=== PATIENT | male | born 1965 | race Caucasian/White ===

== ENCOUNTER 2018-08-08 22:28 | Emergency (ER) | payer SELFPAY ==
[~2018-08-08] VITALS: Ht 172.7 cm; Wt 77.3 kg
[2018-08-08] MEDS ORDERED: ACET-784 PO (23:06)
[2018-08-08] MEDS ORDERED: GABA-529 PO (23:06)
[2018-08-08] MEDS ORDERED: INSREG SQ (23:06)
[2018-08-08] MEDS ORDERED: AMLO-511 PO (23:06)
[2018-08-08] MEDS ORDERED: ASPI81 PO (23:06)
[2018-08-08] MEDS ORDERED: CEFA1VIA11 IVP (23:06)
[2018-08-08] MEDS ORDERED: MORP15T PO ×2 (23:06)
[2018-08-08] MEDS ORDERED: ATOR40TA28 PO (23:06)
[2018-08-08] MEDS ORDERED: INSLAN SQ (23:06)
[2018-08-08] MEDS ORDERED: MORP30CA17 PO ×2 (23:06)
[2018-08-08] MEDS ORDERED: ISOS10TA16 PO (23:06)
[2018-08-08] MEDS ORDERED: NITR.4 SL (23:06)
[2018-08-08] MEDS ORDERED: SODIUM CHLORIDE 0.9% 1,000 ML IV ONE (23:15)
[2018-08-08] MEDS ORDERED: ACETAMINOPHEN 325 MG TABLET PO ONE (23:15)
[2018-08-08] MEDS ORDERED: ASPIRIN 325 MG TABLET PO ONE (23:15)
[2018-08-08 23:34] LABS: BASOPHILS % (AUTO) 0.2 % (0.0-2.0); EOSINOPHILS % (AUTO) 2.5 % (1.0-6.0); HEMATOCRIT 27.6 % (41-53); HEMOGLOBIN 9.6 g/dL (13.5-17.5); LYMPHOCYTES # (AUTO) 0.3 K/uL (1.0-4.8); LYMPHOCYTES % (AUTO) 5.7 % (22.0-44.0); MEAN CORPUSCULAR HEMOGLOBIN 30.1 pg (26.0-34.0); MEAN CORPUSCULAR VOLUME 86 fL (80-100); MONOCYTES # (AUTO) 0.3 K/uL (0.1-1.0); MONOCYTES % (AUTO) 5.8 % (2.0-9.0); NEUTROPHILS # (AUTO) 4.8 K/uL (1.8-7.7); NEUTROPHILS % (AUTO) 85.8 % (40.0-70.0); RED CELL DISTRIBUTION WIDTH 13.7 % (11.5-14.5)
[2018-08-08 23:42] LABS: INR 1.3 (0.9-1.1); PROTHROMBIN TIME 13.4 SEC (9.4-11.6)
[2018-08-08] MEDS ORDERED: MORPHINE SULFATE 2 MG/ML SYRINGE IVP ONE (23:45)
[2018-08-08 23:46] LABS: ANION GAP 12 mmol/L (8-16); CALCIUM, TOTAL 7.6 mg/dL (8.8-10.5); CARBON DIOXIDE 22 mmol/L (22-29); CHLORIDE 101 mmol/L (98-107); CREATININE 1.15 mg/dL (0.60-1.30); GLOMERULAR FILTR. RATE CALC > 60 mL/min (>60); GLUCOSE,RANDOM 103 mg/dL (70-110); PLATELET COUNT (AUTO) 72 K/uL (150-450); PLATELET MORPHOLOGY COMMENT LARGE PLTS PRESENT; POTASSIUM 3.4 mmol/L (3.5-5.1); SODIUM SERUM 135 mmol/L (136-145); UREA NITROGEN, BLOOD 15 mg/dL (7-18)
[2018-08-08 23:47] LABS: LACTIC ACID 0.8 mmol/L (0.4-2.0)
[2018-08-09 00:01] LABS: B-TYPE NATRIURETIC PEPTIDE 306 pg/mL (0-100)
[2018-08-09 00:08] LABS: ALANINE AMINOTRANSFERASE 9 U/L (12-78); ALBUMIN 2.2 g/dL (3.4-5.0); ALKALINE PHOSPHATASE 61 U/L (46-116); ASPARTATE AMINOTRANSFERASE 30 U/L (15-37); BILIRUBIN,TOTAL 1.5 mg/dL (0.1-1.0); CREATINE KINASE, TOTAL ONLY 204 U/L (39-308); TOTAL PROTEIN, SERUM 5.8 g/dL (6.4-8.2)
[2018-08-09] MEDS ORDERED: FUROSEMIDE 40 MG/4 ML VIAL IVP ONE (01:15)
[2018-08-09] MEDS ORDERED: SODIUM CHLORIDE 0.9% 1,000 ML IV ONE (01:15)
[2018-08-09 01:55] LABS: APPEARANCE,URINE CLOUDY (CLEAR); BILIRUBIN,URINE NEGATIVE (NEGATIVE); GLUCOSE, URINE (UA) NEGATIVE (NEGATIVE); KETONES,URINE TRACE mg/dL (NEGATIVE); LEUKOCYTE ESTERASE ,URINE NEGATIVE (NEGATIVE); NITRATE,URINE NEGATIVE (NEGATIVE); OCCULT BLOOD,URINE LARGE (NEGATIVE); PH,URINE 5.5 (5.0-8.0); PROTEIN,URINE NEGATIVE (NEGATIVE)
[2018-08-09 02:22] LABS: D-DIMER 2.36 mg/L FEU (0.00-0.50)
[2018-08-09 03:15] LABS: BACTERIA,URINE None Seen /HPF (None Seen); RBC,URINE 26-50 /HPF (0-2); WBC,URINE 0-2 /HPF (0-5)
[2018-08-09 03:16] LABS: SQUAMOUS EPITHELIAL CELL,UR Rare /LPF (None Seen)
[2018-08-09] MEDS ORDERED: SODIUM CHLORIDE 0.9% 100 ML ONE (03:48)
[2018-08-09] MEDS ORDERED: IOVERSOL 350 MG/ML 100 ML VIAL ONE (03:48)
[2018-08-09 05:00] VITALS: BP 128/74
== END 2018-08-09 05:00 | disposition home or self-care (01) ==
LOC: EMS 22:30
DX: R07.89 Other chest pain (principal); R31.9 Hematuria, unspecified; I25.10 Atherosclerotic heart disease of native coronary artery without angina pectoris; I11.0 Hypertensive heart disease with heart failure; I50.9 Heart failure, unspecified; E11.9 Type 2 diabetes mellitus without complications; Z88.5 Allergy status to narcotic agent; Z79.4 Long term (current) use of insulin; Z79.82 Long term (current) use of aspirin; Z79.899 Other long term (current) drug therapy; Z87.891 Personal history of nicotine dependence
CPT/HCPCS: 36415; 71045; 71275; 80053; 81001; 82550; 83605; 83880; 84484; 85025; 85379; 85610; 85730; 87040; 93005; 96374; 96375; 99285; J1940; J2270; J7030; J7050; Q9967

== ENCOUNTER 2025-03-14 02:15 | Inpatient (IN) | payer OTHER ==
[~2025-03-14] VITALS: Ht 170.2 cm; Wt 76.4 kg
[~2025-03-14 02:15] MED LIST: FAMO20 PO; FURO20TA5 PO; INSLAN SQ; INSU100V SQ; LACT10SO10 PO; NITR0.4T52 SL; RIFAX550 PO; SPIR-37 PO
[2025-03-14] MEDS: LIDOCAINE 2% 6 ML JELLY TP ONE (04:06)
[2025-03-14 04:37] LABS: RED BLOOD CELL COUNT(AUTO) 4.53 MIL/uL (4.50-5.90); RED CELL DISTRIBUTION WIDTH 17.4 % (11.5-14.5); WHITE BLOOD COUNT (AUTO) 3.2 K/uL (4.5-11.0)
[2025-03-14 04:40] LABS: CALCIUM, TOTAL 8.4 mg/dL (8.8-10.5); CREATININE 0.77 mg/dL (0.60-1.30); GLOMERULAR FILTR. RATE CALC > 60 mL/min (>60); GLUCOSE,RANDOM 167 mg/dL (70-110); SODIUM SERUM 139 mmol/L (136-145); UREA NITROGEN, BLOOD 11 mg/dL (7-18)
[2025-03-14 04:45] LABS: ASPARTATE AMINOTRANSFERASE 30.0 U/L (15-37); TOTAL PROTEIN, SERUM 6.7 g/dL (6.4-8.2)
[2025-03-14 04:46] LABS: PLATELET COUNT (AUTO) 62 K/uL (150-450)
[2025-03-14 04:48] LABS: APPEARANCE,URINE CLEAR (CLEAR); GLUCOSE, URINE (UA) NEGATIVE (NEGATIVE); LEUKOCYTE ESTERASE ,URINE NEGATIVE (NEGATIVE); NITRATE,URINE NEGATIVE (NEGATIVE); OCCULT BLOOD,URINE MODERATE (NEGATIVE); SPECIFIC GRAVITIY, URINE 1.015 (1.003-1.030)
[2025-03-14 04:50] LABS: SQUAMOUS EPITHELIAL CELL,UR Few /LPF (None Seen)
[2025-03-14 06:22] LABS: TROPONIN I-HIGH SENSITIVITY 15 ng/L (<76)
[2025-03-14 08:36] LABS: GLUCOMETER DEV NAME(LOC) ERT.7; GLUCOSE,POINT OF CARE 158 MG/DL (70-110)
[2025-03-14 10:41] VITALS: BP 162/86; PULSE 61; RESP 18; TEMP 97.5; O2SAT 99
[2025-03-14] MEDS ORDERED: DEXTROSE 50%-WATER 25 GM/50 ML SYRINGE IVP PRN (13:15)
[2025-03-14] MEDS: POTASSIUM CHLORIDE 20 MEQ ER TABLET PO ONE (13:57)
[2025-03-14] MEDS: KETOROLAC TROMETHAMINE 15 MG/ML VIAL IVP PRN (13:58)
[2025-03-14 15:55] VITALS: BP 138/81; PULSE 72; RESP 18; TEMP 98.1; O2SAT 98
[2025-03-14] MEDS ORDERED: ONDANSETRON HCL 4 MG/2 ML VIAL IVP PRN (16:45)
[2025-03-14] MEDS ORDERED: BISACODYL 10 MG RECTAL RECTAL SUPPOSITORY PR PRN (16:45)
[2025-03-14] MEDS ORDERED: ALBUTEROL SULFATE 2.5 MG/0.5 ML NEB SOLUTION NEB PRN (16:45)
[2025-03-14] MEDS ORDERED: IPRATROPIUM BROMIDE 0.5 MG/2.5 ML NEB SOLUTION NEB PRN (16:45)
[2025-03-14] MEDS ORDERED: ATOR20TA65 PO (16:45)
[2025-03-14] MEDS ORDERED: MAGNESIUM HYDROXIDE SUSPENSION 30 ML UDCUP PO PRN (16:45)
[2025-03-14] MEDS: INSULIN LISPRO 100 UNITS/ML SQ PRN (17:30)
[2025-03-14 17:40] LABS: GLUCOMETER DEV NAME(LOC) 6S.1D; GLUCOSE,POINT OF CARE 178 MG/DL (70-110)
[2025-03-14 18:26] LABS: GLUCOMETER DEV NAME(LOC) 6S.2; GLUCOSE,POINT OF CARE 241 MG/DL (70-110)
[2025-03-14] MEDS: ACETAMINOPHEN 325 MG TABLET PO PRN (20:20)
[2025-03-14 20:21] VITALS: BP 147/74; PULSE 63; RESP 19; TEMP 98.1; O2SAT 99
[2025-03-14] MEDS: DOCUSATE SODIUM 100 MG CAPSULE PO SCH (21:12)
[2025-03-14] MEDS: HEPARIN SODIUM,PORCINE 5,000 UNITS/ML VIAL SQ SCH (23:33)
[2025-03-15 04:51] VITALS: BP 161/85; PULSE 62; RESP 19; TEMP 98; O2SAT 95
[2025-03-15 05:26] LABS: GLUCOMETER DEV NAME(LOC) 6S.1D; GLUCOSE,POINT OF CARE 149 MG/DL (70-110)
[2025-03-15 06:30] VITALS: BP 147/83
[2025-03-15 06:41] LABS: GLUCOMETER DEV NAME(LOC) 6N.2C; GLUCOSE,POINT OF CARE 151 MG/DL (70-110)
[2025-03-15] MEDS: PANTOPRAZOLE SODIUM 40 MG/VIAL IVP SCH (08:40)
[2025-03-15 09:06] VITALS: BP 135/83; PULSE 68; RESP 18; TEMP 97.9; O2SAT 96
[2025-03-15] MEDS: TAMSULOSIN HCL 0.4 MG CAPSULE PO ONE (10:25)
[2025-03-15 14:10] LABS: GLUCOMETER DEV NAME(LOC) 6S.1D; GLUCOSE,POINT OF CARE 178 MG/DL (70-110)
[2025-03-15 19:20] VITALS: BP 123/62; PULSE 72; RESP 18; TEMP 97.9; O2SAT 97
[2025-03-15] MEDS: TAMSULOSIN HCL 0.4 MG CAPSULE PO SCH (20:13)
[2025-03-15 20:36] LABS: GLUCOMETER DEV NAME(LOC) 6N.2C; GLUCOSE,POINT OF CARE 157 MG/DL (70-110)
[2025-03-15] MEDS: ZOLPIDEM TARTRATE 5 MG TABLET PO PRN (22:50)
[2025-03-16 02:46] LABS: GLUCOMETER DEV NAME(LOC) 6S.2; GLUCOSE,POINT OF CARE 201 MG/DL (70-110)
[2025-03-16 08:00] VITALS: BP 141/80; PULSE 61; RESP 19; TEMP 97.7; O2SAT 97
[2025-03-16 15:56] LABS: GLUCOMETER DEV NAME(LOC) 6N.2C; GLUCOSE,POINT OF CARE 203 MG/DL (70-110)
[2025-03-16 16:00] LABS: GLUCOMETER DEV NAME(LOC) 6S.2; GLUCOSE,POINT OF CARE 159 MG/DL (70-110)
[2025-03-16 20:26] LABS: GLUCOMETER DEV NAME(LOC) 6S.2; GLUCOSE,POINT OF CARE 151 MG/DL (70-110)
[2025-03-16 20:26] LABS: GLUCOMETER DEV NAME(LOC) 6S.2; GLUCOSE,POINT OF CARE 190 MG/DL (70-110)
[2025-03-16 20:39] VITALS: BP 134/65; PULSE 66; RESP 18; TEMP 97.7; O2SAT 99
[2025-03-17 05:24] VITALS: BP 146/76; PULSE 59; RESP 20; TEMP 97.9; O2SAT 96
[2025-03-17 05:50] LABS: GLUCOMETER DEV NAME(LOC) 6N.2C; GLUCOSE,POINT OF CARE 169 MG/DL (70-110)
[2025-03-17] MEDS ORDERED: TAMS0.4C94 PO (07:52)
[2025-03-17] MEDS ORDERED: METF-1211 PO (07:54)
[2025-03-17 08:16] VITALS: BP 157/67; PULSE 62; RESP 20; TEMP 97.7; O2SAT 98
[2025-03-17 14:51] LABS: GLUCOMETER DEV NAME(LOC) 6N.2C; GLUCOSE,POINT OF CARE 162 MG/DL (70-110)
== END 2025-03-17 15:11 | DRG 726 ==
LOC: EMS 02:16 → EDH 07:44 → 6S 09:57
PROVIDERS: ADMIT Hospitalist; ATTEND Hospitalist
DX: N40.1 Benign prostatic hyperplasia with lower urinary tract symptoms (principal); R33.8 Other retention of urine; E78.5 Hyperlipidemia, unspecified; E11.9 Type 2 diabetes mellitus without complications; D69.6 Thrombocytopenia, unspecified; E87.6 Hypokalemia; I11.0 Hypertensive heart disease with heart failure; I25.10 Atherosclerotic heart disease of native coronary artery without angina pectoris; K74.60 Unspecified cirrhosis of liver; I50.9 Heart failure, unspecified; Z86.73 Personal history of transient ischemic attack (TIA), and cerebral infarction without residual deficits; Z87.891 Personal history of nicotine dependence; Z88.5 Allergy status to narcotic agent; Z79.899 Other long term (current) drug therapy
CPT/HCPCS: 51702; 71045; 74018; 74176; 80048; 80076; 81001; 82962; 83880; 84132; 84484; 85025; 93005; 99285; J1885; J2470; 36415-L1; 36415-TC

== ENCOUNTER 2025-03-22 09:33 | Inpatient (IN) | payer OTHER ==
[~2025-03-22] VITALS: Ht 170.2 cm; Wt 78.6 kg
[~2025-03-22 09:33] MED LIST changes: -FAMO20 PO; -FURO20TA5 PO; -INSLAN SQ; -LACT10SO10 PO; +METF-1211 PO; -NITR0.4T52 SL; -RIFAX550 PO; -SPIR-37 PO; +TAMS0.4C94 PO
[2025-03-22 10:08] LABS: PLATELET COUNT (AUTO) 65 K/uL (150-450); RED BLOOD CELL COUNT(AUTO) 4.38 MIL/uL (4.50-5.90); RED CELL DISTRIBUTION WIDTH 17.1 % (11.5-14.5); WHITE BLOOD COUNT (AUTO) 2.8 K/uL (4.5-11.0)
[2025-03-22 10:15] LABS: CALCIUM, TOTAL 7.8 mg/dL (8.8-10.5); CREATININE 0.81 mg/dL (0.60-1.30); GLOMERULAR FILTR. RATE CALC > 60 mL/min (>60); GLUCOSE,RANDOM 183 mg/dL (70-110); SODIUM SERUM 140 mmol/L (136-145); UREA NITROGEN, BLOOD 13 mg/dL (7-18)
[2025-03-22 10:29] LABS: RBC MORPHOLOGY COMMENT ABNORMAL RBC MORPH
[2025-03-22 11:10] LABS: APPEARANCE,URINE CLEAR (CLEAR); GLUCOSE, URINE (UA) 300-500 mg/dL (NEGATIVE); LEUKOCYTE ESTERASE ,URINE NEGATIVE (NEGATIVE); NITRATE,URINE NEGATIVE (NEGATIVE); OCCULT BLOOD,URINE NEGATIVE (NEGATIVE); SPECIFIC GRAVITIY, URINE 1.019 (1.003-1.030)
[2025-03-22] MEDS ORDERED: DEXTROSE 50%-WATER 25 GM/50 ML SYRINGE IVP PRN (11:30)
[2025-03-22] MEDS ORDERED: FentaNYL CITRATE PF 100 MCG/2 ML VIAL ONE (11:38)
[2025-03-22] MEDS ORDERED: POTASSIUM CHL 10 MEQ/WATER 50 ML IV PRN (11:45)
[2025-03-22] MEDS ORDERED: POTASSIUM CHLORIDE 20 MEQ ER TABLET PO PRN (11:45)
[2025-03-22] MEDS: POTASSIUM CHLORIDE 20 MEQ ER TABLET PO ONE (12:09)
[2025-03-22 12:35] VITALS: BP 163/83; PULSE 70; RESP 18; TEMP 97.5; O2SAT 100
[2025-03-22] MEDS: ACETAMINOPHEN 325 MG TABLET PO PRN (14:26)
[2025-03-22] MEDS ORDERED: HEPARIN SODIUM,PORCINE 5,000 UNITS/ML VIAL SQ SCH (16:00)
[2025-03-22 18:50] LABS: GLUCOMETER DEV NAME(LOC) 6S.2; GLUCOSE,POINT OF CARE 131 MG/DL (70-110)
[2025-03-22 20:05] VITALS: BP 130/80; PULSE 65; RESP 18; TEMP 98.1; O2SAT 98
[2025-03-22] MEDS: INSULIN LISPRO 100 UNITS/ML SQ PRN (20:35)
[2025-03-22] MEDS: DOCUSATE SODIUM 100 MG CAPSULE PO SCH (20:35)
[2025-03-22] MEDS: TAMSULOSIN HCL 0.4 MG CAPSULE PO SCH (20:35)
[2025-03-22 21:21] LABS: GLUCOMETER DEV NAME(LOC) 6N.2C; GLUCOSE,POINT OF CARE 144 MG/DL (70-110)
[2025-03-23 05:15] VITALS: BP 155/76; PULSE 63; RESP 18; TEMP 98.4; O2SAT 99
[2025-03-23] MEDS: ETHYL ALCOHOL 62% ANTISEPTIC NASAL SANITIZER 0.6 ML AMPUL NASAL ONE (06:28)
[2025-03-23] MEDS: CHLORHEXIDINE GLUCONATE 2% TOWELETTE [2'S/6'S] TP ONE (06:28)
[2025-03-23] MEDS ORDERED: RINGERS SOLUTION,LACTATED 1,000 ML IV ONE (06:44)
[2025-03-23] MEDS: RINGERS SOLUTION,LACTATED 1,000 ML IV ONE (06:52)
[2025-03-23 07:22] LABS: CALCIUM, TOTAL 7.8 mg/dL (8.8-10.5); CREATININE 0.85 mg/dL (0.60-1.30); GLOMERULAR FILTR. RATE CALC > 60 mL/min (>60); GLUCOSE,RANDOM 129 mg/dL (70-110); SODIUM SERUM 142 mmol/L (136-145); UREA NITROGEN, BLOOD 15 mg/dL (7-18)
[2025-03-23 07:46] VITALS: BP 121/71; PULSE 78; RESP 18; TEMP 98.4; O2SAT 100
[2025-03-23] MEDS ORDERED: PROPOFOL 1000 MG/ISO-OSM 100 ML ONE (10:20)
[2025-03-23] MEDS ORDERED: GLYCOPYRROLATE 0.2 MG/ML VIAL ONE (11:04)
[2025-03-23] MEDS ORDERED: ROCURONIUM BROMIDE 10 MG/ML 5 ML VIAL ONE (11:04)
[2025-03-23] MEDS ORDERED: SUGAMMADEX SODIUM 200 MG/2 ML VIAL IVP ONE (11:04)
[2025-03-23] MEDS ORDERED: PROPOFOL 1% 20 ML VIAL IVP ONE (11:04)
[2025-03-23] MEDS ORDERED: ONDANSETRON HCL 4 MG/2 ML VIAL ONE (11:04)
[2025-03-23] MEDS ORDERED: METOCLOPRAMIDE HCL 5 MG/ML 2 ML VIAL ONE (11:04)
[2025-03-23] MEDS ORDERED: DEXAMETHASONE SOD PHOS 4 MG/ML VIAL ONE (11:04)
[2025-03-23] MEDS ORDERED: LIDOCAINE/PF 2% 5 ML VIAL ONE (11:04)
[2025-03-23] MEDS ORDERED: INSULIN LISPRO 100 UNITS/ML SQ SCH (11:30)
[2025-03-23] MEDS ORDERED: DEXTROSE 50%-WATER 25 GM/50 ML SYRINGE IVP PRN (12:15)
[2025-03-23] MEDS ORDERED: INSULIN LISPRO 100 UNITS/ML SQ PRN (12:15)
[2025-03-23] MEDS: FAMOTIDINE 20 MG TABLET PO SCH (12:16)
[2025-03-23] MEDS: ATORVASTATIN CALCIUM 20 MG TABLET PO SCH (12:16)
[2025-03-23] MEDS: ASPIRIN 81 MG CHEWABLE TABLET PO SCH (12:16)
[2025-03-23] MEDS: CefTRIAXone 1 GM/DEXTROSE 50 ML IV ONE (12:17)
[2025-03-23] MEDS: TAMSULOSIN HCL 0.4 MG CAPSULE PO SCH (14:19)
[2025-03-23] MEDS: BETHANECHOL CHLORIDE 25 MG TABLET PO SCH (15:56)
[2025-03-23 16:26] LABS: GLUCOMETER DEV NAME(LOC) 6N.2C; GLUCOSE,POINT OF CARE 128 MG/DL (70-110)
[2025-03-23 19:10] VITALS: BP 112/69; PULSE 65; RESP 18; TEMP 97.7; O2SAT 97
[2025-03-23 19:41] LABS: GLUCOMETER DEV NAME(LOC) 6N.2C; GLUCOSE,POINT OF CARE 312 MG/DL (70-110)
[2025-03-23 20:45] LABS: GLUCOMETER DEV NAME(LOC) 6N.2C; GLUCOSE,POINT OF CARE 338 MG/DL (70-110)
[2025-03-23] MEDS ORDERED: TAMSULOSIN HCL 0.4 MG CAPSULE PO SCH (21:00)
[2025-03-24 04:01] VITALS: BP 128/64; PULSE 74; RESP 18; TEMP 97.7; O2SAT 98
[2025-03-24 06:06] LABS: GLUCOMETER DEV NAME(LOC) 6S.2; GLUCOSE,POINT OF CARE 212 MG/DL (70-110)
[2025-03-24 08:31] VITALS: BP 118/69; PULSE 62; RESP 18; TEMP 98.2; O2SAT 97
[2025-03-24 12:10] LABS: GLUCOMETER DEV NAME(LOC) 6S.2; GLUCOSE,POINT OF CARE 232 MG/DL (70-110)
[2025-03-24 18:50] LABS: GLUCOMETER DEV NAME(LOC) 6S.2; GLUCOSE,POINT OF CARE 145 MG/DL (70-110)
[2025-03-24 20:21] VITALS: BP 126/60; PULSE 69; RESP 18; TEMP 98.1; O2SAT 98
[2025-03-24] MEDS: MELATONIN 3 MG TABLET PO SCH (22:09)
[2025-03-24] MEDS: KETOROLAC TROMETHAMINE 15 MG/ML VIAL IVP PRN (22:09)
[2025-03-25 04:26] VITALS: BP 125/60; PULSE 61; RESP 18; TEMP 97.7; O2SAT 95
[2025-03-25 05:36] LABS: GLUCOMETER DEV NAME(LOC) 6N.2C; GLUCOSE,POINT OF CARE 157 MG/DL (70-110)
[2025-03-25 07:41] LABS: GLUCOMETER DEV NAME(LOC) 6S.2; GLUCOSE,POINT OF CARE 138 MG/DL (70-110)
[2025-03-25 08:05] LABS: CALCIUM, TOTAL 7.3 mg/dL (8.8-10.5); CREATININE 0.81 mg/dL (0.60-1.30); GLOMERULAR FILTR. RATE CALC > 60 mL/min (>60); GLUCOSE,RANDOM 119 mg/dL (70-110); SODIUM SERUM 140 mmol/L (136-145); UREA NITROGEN, BLOOD 19 mg/dL (7-18)
[2025-03-25 08:40] VITALS: BP 151/80; PULSE 60; RESP 19; TEMP 97.7; O2SAT 95
[2025-03-25] MEDS ORDERED: POTASSIUM CHL 10 MEQ/WATER 50 ML IV PRN (10:00)
[2025-03-25 16:25] LABS: GLUCOMETER DEV NAME(LOC) 6S.2; GLUCOSE,POINT OF CARE 128 MG/DL (70-110)
[2025-03-25] MEDS: POTASSIUM CHLORIDE 20 MEQ ER TABLET PO PRN (18:20)
[2025-03-25 19:35] VITALS: BP 155/81; PULSE 65; RESP 18; TEMP 97.5; O2SAT 95
[2025-03-25 19:36] LABS: GLUCOMETER DEV NAME(LOC) 6S.2; GLUCOSE,POINT OF CARE 125 MG/DL (70-110)
[2025-03-25 23:56] LABS: GLUCOMETER DEV NAME(LOC) 6S.2; GLUCOSE,POINT OF CARE 146 MG/DL (70-110)
[2025-03-26 04:18] VITALS: BP 154/75; PULSE 59; RESP 18; TEMP 97; O2SAT 97
[2025-03-26 05:50] LABS: GLUCOMETER DEV NAME(LOC) 6N.2C; GLUCOSE,POINT OF CARE 121 MG/DL (70-110)
[2025-03-26 08:45] VITALS: BP 139/71; PULSE 58; RESP 18; TEMP 97.8; O2SAT 97
[2025-03-26] MEDS ORDERED: ASPI-1450 PO (10:14)
[2025-03-26] MEDS ORDERED: ATOR20TA PO (10:17)
[2025-03-26] MEDS ORDERED: DOCU-385 PO (10:19)
[2025-03-26] MEDS ORDERED: BETH25 PO (10:19)
[2025-03-26] MEDS ORDERED: FAMO20 PO (10:20)
[2025-03-26] MEDS ORDERED: TAMS0.4C94 PO (10:21)
[2025-03-26] MEDS ORDERED: ACET650S24 PR (10:21)
[2025-03-26] MEDS ORDERED: ACET-2247 PO (10:22)
[2025-03-26 17:06] LABS: GLUCOMETER DEV NAME(LOC) 6N.2C; GLUCOSE,POINT OF CARE 116 MG/DL (70-110)
[2025-03-26 18:05] LABS: GLUCOMETER DEV NAME(LOC) 6N.2C; GLUCOSE,POINT OF CARE 128 MG/DL (70-110)
== END 2025-03-26 20:10 | DRG 726 ==
LOC: EMS 09:40 → EDH 11:27 → 6N 12:33
PROVIDERS: ADMIT Internal Medicine; ATTEND Internal Medicine
PROC: 0TJB8ZZ Inspection of Bladder, Via Natural or Artificial Opening Endoscopic (ICD-10-PCS; principal; 2025-03-23 10:40)
DX: N40.1 Benign prostatic hyperplasia with lower urinary tract symptoms (principal); D61.818 Other pancytopenia; N31.9 Neuromuscular dysfunction of bladder, unspecified; E11.9 Type 2 diabetes mellitus without complications; E87.6 Hypokalemia; I11.0 Hypertensive heart disease with heart failure; I25.10 Atherosclerotic heart disease of native coronary artery without angina pectoris; K74.60 Unspecified cirrhosis of liver; I50.9 Heart failure, unspecified; Z79.4 Long term (current) use of insulin; Z86.73 Personal history of transient ischemic attack (TIA), and cerebral infarction without residual deficits; Z87.891 Personal history of nicotine dependence; Z88.5 Allergy status to narcotic agent
CPT/HCPCS: 80048; 81001; 82962; 84132; 85025; 87081; 99285; J0696; J1100; J1815; J1885; J2405; J2704; J2765; J3010; J3490; J7120

== ENCOUNTER 2025-03-28 23:13 | Inpatient (IN) | payer OTHER ==
[~2025-03-28] VITALS: Ht 170.2 cm; Wt 85.6 kg
[~2025-03-28 23:13] MED LIST changes: +ACET-2247 PO; +ASPI-1450 PO; +ATOR20TA PO; +BETH25 PO; +DOCU-385 PO; +FAMO20 PO
[2025-03-29 00:16] LABS: GLUCOMETER DEV NAME(LOC) ERT.7; GLUCOSE,POINT OF CARE 136 MG/DL (70-110)
[2025-03-29 00:46] LABS: RED BLOOD CELL COUNT(AUTO) 4.54 MIL/uL (4.50-5.90); RED CELL DISTRIBUTION WIDTH 17.5 % (11.5-14.5); WHITE BLOOD COUNT (AUTO) 3.3 K/uL (4.5-11.0)
[2025-03-29 00:53] LABS: CALCIUM, TOTAL 8.0 mg/dL (8.8-10.5); CREATININE 0.99 mg/dL (0.60-1.30); GLOMERULAR FILTR. RATE CALC > 60 mL/min (>60); GLUCOSE,RANDOM 126 mg/dL (70-110); SODIUM SERUM 139 mmol/L (136-145); UREA NITROGEN, BLOOD 13 mg/dL (7-18)
[2025-03-29 00:57] LABS: PLATELET COUNT (AUTO) 74 K/uL (150-450)
[2025-03-29 01:11] LABS: APPEARANCE,URINE CLEAR (CLEAR); GLUCOSE, URINE (UA) NEGATIVE (NEGATIVE); LEUKOCYTE ESTERASE ,URINE NEGATIVE (NEGATIVE); NITRATE,URINE NEGATIVE (NEGATIVE); OCCULT BLOOD,URINE NEGATIVE (NEGATIVE); SPECIFIC GRAVITIY, URINE 1.011 (1.003-1.030)
[2025-03-29] MEDS: FentaNYL CITRATE PF 100 MCG/2 ML VIAL IVP ONE (02:32)
[2025-03-29] MEDS ORDERED: ACETAMINOPHEN 325 MG TABLET PO PRN (08:30)
[2025-03-29] MEDS ORDERED: DEXTROSE 50%-WATER 25 GM/50 ML SYRINGE IVP PRN (08:45)
[2025-03-29] MEDS ORDERED: DOCUSATE SODIUM 100 MG CAPSULE PO SCH (09:00)
[2025-03-29] MEDS ORDERED: TAMSULOSIN HCL 0.4 MG CAPSULE PO SCH (09:00)
[2025-03-29] MEDS ORDERED: IOHEXOL 350 MG/ML 100 ML VIAL ONE (10:36)
[2025-03-29] MEDS ORDERED: SODIUM CHLORIDE 0.9% 100 ML ONE (10:37)
[2025-03-29 10:56] VITALS: BP 173/87; PULSE 59; RESP 19; TEMP 98; O2SAT 100
[2025-03-29] MEDS ORDERED: SODIUM CHLORIDE 0.9% 500 ML IV ONE (13:45)
[2025-03-29] MEDS: ATORVASTATIN CALCIUM 20 MG TABLET PO SCH (13:56)
[2025-03-29] MEDS: DOXYCYCLINE HYCLATE 100 MG in DEXTROSE 5%-WATER 100 ML IV SCH (13:56)
[2025-03-29] MEDS: CefTRIAXone SODIUM 2 GM in DEXTROSE 5%-WATER 50 ML IV SCH (13:56)
[2025-03-29] MEDS: ASPIRIN 81 MG CHEWABLE TABLET PO SCH (13:57)
[2025-03-29] MEDS: FAMOTIDINE 20 MG TABLET PO SCH (13:57)
[2025-03-29 14:00] LABS: GLUCOMETER DEV NAME(LOC) 4E.2; GLUCOSE,POINT OF CARE 253 MG/DL (70-110)
[2025-03-29] MEDS: INSULIN LISPRO 100 UNITS/ML SQ PRN (14:03)
[2025-03-29] MEDS: HEPARIN SODIUM,PORCINE 5,000 UNITS/ML VIAL SQ SCH (15:42)
[2025-03-29 19:23] VITALS: BP 148/81; PULSE 60; RESP 18; TEMP 97.9; O2SAT 96
[2025-03-29] MEDS: DOCUSATE SODIUM 100 MG CAPSULE PO SCH (21:00)
[2025-03-29] MEDS: TAMSULOSIN HCL 0.4 MG CAPSULE PO SCH (21:40)
[2025-03-29 22:25] LABS: GLUCOMETER DEV NAME(LOC) 4E.2; GLUCOSE,POINT OF CARE 120 MG/DL (70-110)
[2025-03-29 23:06] LABS: GLUCOMETER DEV NAME(LOC) 6N.2C; GLUCOSE,POINT OF CARE 127 MG/DL (70-110)
[2025-03-30 04:42] VITALS: BP 150/82; PULSE 63; RESP 18; TEMP 97.5; O2SAT 97
[2025-03-30 08:06] LABS: GLUCOMETER DEV NAME(LOC) 6N.2C; GLUCOSE,POINT OF CARE 152 MG/DL (70-110)
[2025-03-30 08:07] LABS: ANTI-DNA DOUBLE STRANDED ABS <1 IU/mL (0-9)
[2025-03-30 09:06] VITALS: BP 127/78; PULSE 65; RESP 18; TEMP 98; O2SAT 94
[2025-03-30 11:35] LABS: GLUCOMETER DEV NAME(LOC) 4E.2; GLUCOSE,POINT OF CARE 185 MG/DL (70-110)
[2025-03-30 17:21] LABS: GLUCOMETER DEV NAME(LOC) 6N.2C; GLUCOSE,POINT OF CARE 126 MG/DL (70-110)
[2025-03-30 19:34] VITALS: BP 134/77; PULSE 71; RESP 18; TEMP 97.9; O2SAT 95
[2025-03-31 04:26] LABS: GLUCOMETER DEV NAME(LOC) 6N.1C; GLUCOSE,POINT OF CARE 195 MG/DL (70-110)
[2025-03-31 04:48] VITALS: BP 141/79; PULSE 72; RESP 18; TEMP 98.4; O2SAT 96
[2025-03-31 05:55] LABS: GLUCOMETER DEV NAME(LOC) 6N.2C; GLUCOSE,POINT OF CARE 136 MG/DL (70-110)
[2025-03-31 08:04] VITALS: BP 152/83; PULSE 81; RESP 18; TEMP 97.9; O2SAT 95
[2025-03-31 12:05] LABS: GLUCOMETER DEV NAME(LOC) 6N.2C; GLUCOSE,POINT OF CARE 156 MG/DL (70-110)
[2025-03-31 15:00] VITALS: BP 157/82; PULSE 63; RESP 17
[2025-03-31 15:07] LABS: ANTI-PROTEINASE 3 (PR3) <0.2 units (0.0-0.9)
[2025-03-31 16:00] VITALS: BP 155/85; PULSE 61; RESP 17; TEMP 97.8; O2SAT 99
[2025-03-31] MEDS ORDERED: AMLO-257 PO (17:51)
[2025-03-31] MEDS ORDERED: CAPS60CR3 TP (17:57)
[2025-03-31] MEDS ORDERED: LOSA-382 PO (17:57)
[2025-03-31] MEDS ORDERED: HYDR10TA31 PO (17:57)
[2025-03-31 20:50] VITALS: BP 166/90; PULSE 74; RESP 20; TEMP 98.4; O2SAT 96
[2025-03-31 21:40] LABS: GLUCOMETER DEV NAME(LOC) 6N.2C; GLUCOSE,POINT OF CARE 133 MG/DL (70-110)
[2025-04-01 06:21] LABS: GLUCOMETER DEV NAME(LOC) 6N.1C; GLUCOSE,POINT OF CARE 143 MG/DL (70-110)
[2025-04-01 06:25] LABS: GLUCOMETER DEV NAME(LOC) 6N.2C; GLUCOSE,POINT OF CARE 133 MG/DL (70-110)
[2025-04-01 06:48] VITALS: BP 159/83; PULSE 72; RESP 18; TEMP 97.7; O2SAT 97
[2025-04-01 08:00] VITALS: BP 126/70; PULSE 69; RESP 18; TEMP 97.9; O2SAT 95
[2025-04-01 08:24] LABS: RED BLOOD CELL COUNT(AUTO) 3.94 MIL/uL (4.50-5.90); RED CELL DISTRIBUTION WIDTH 16.4 % (11.5-14.5); WHITE BLOOD COUNT (AUTO) 2.7 K/uL (4.5-11.0)
[2025-04-01] MEDS: LOSARTAN POTASSIUM 50 MG TABLET PO SCH (08:27)
[2025-04-01 08:39] LABS: CALCIUM, TOTAL 7.7 mg/dL (8.8-10.5); CREATININE 0.80 mg/dL (0.60-1.30); GLOMERULAR FILTR. RATE CALC > 60 mL/min (>60); GLUCOSE,RANDOM 130 mg/dL (70-110); SODIUM SERUM 141 mmol/L (136-145); UREA NITROGEN, BLOOD 16 mg/dL (7-18)
[2025-04-01 10:16] LABS: PLATELET COUNT (AUTO) 70 K/uL (150-450)
[2025-04-01] MEDS: POTASSIUM CHLORIDE 20 MEQ ER TABLET PO ONE (14:53)
[2025-04-01 19:36] LABS: GLUCOMETER DEV NAME(LOC) 6N.1C; GLUCOSE,POINT OF CARE 184 MG/DL (70-110)
[2025-04-01 20:30] VITALS: BP 127/74; PULSE 67; RESP 18; TEMP 98.1; O2SAT 97
[2025-04-01 21:36] LABS: GLUCOMETER DEV NAME(LOC) 6N.1C; GLUCOSE,POINT OF CARE 169 MG/DL (70-110)
[2025-04-02 03:51] VITALS: BP 139/85; PULSE 70; RESP 18; TEMP 97.9; O2SAT 96
[2025-04-02 05:46] LABS: GLUCOMETER DEV NAME(LOC) 6N.1C; GLUCOSE,POINT OF CARE 131 MG/DL (70-110)
[2025-04-02 08:50] VITALS: BP 151/90; PULSE 71; RESP 20; TEMP 97.9; O2SAT 96
[2025-04-02 15:39] VITALS: BP 126/77; PULSE 74; RESP 18; TEMP 97.7; O2SAT 95
[2025-04-02 16:05] LABS: GLUCOMETER DEV NAME(LOC) 6N.2C; GLUCOSE,POINT OF CARE 158 MG/DL (70-110)
[2025-04-02 16:45] VITALS: BP 142/76; PULSE 81; RESP 20; TEMP 97.7; O2SAT 95
[2025-04-02 19:15] LABS: GLUCOMETER DEV NAME(LOC) 6N.1C; GLUCOSE,POINT OF CARE 123 MG/DL (70-110)
[2025-04-02 20:59] VITALS: BP 126/72; PULSE 80; RESP 19; TEMP 98; O2SAT 96
[2025-04-02 22:56] LABS: GLUCOMETER DEV NAME(LOC) 6N.2C; GLUCOSE,POINT OF CARE 216 MG/DL (70-110)
[2025-04-03 04:04] VITALS: BP 123/80; PULSE 72; RESP 18; TEMP 98.2; O2SAT 95
[2025-04-03 06:21] LABS: GLUCOMETER DEV NAME(LOC) 6N.1C; GLUCOSE,POINT OF CARE 129 MG/DL (70-110)
[2025-04-03 09:46] VITALS: BP 152/81; PULSE 75; RESP 18; TEMP 98.2; O2SAT 95
[2025-04-03 14:55] LABS: GLUCOMETER DEV NAME(LOC) 6N.1C; GLUCOSE,POINT OF CARE 277 MG/DL (70-110)
[2025-04-03] MEDS: PHENAZOPYRIDINE HCL 200 MG TABLET PO SCH (17:14)
[2025-04-03 19:41] LABS: GLUCOMETER DEV NAME(LOC) 6N.2C; GLUCOSE,POINT OF CARE 134 MG/DL (70-110)
[2025-04-03 19:58] VITALS: BP 132/77; PULSE 79; RESP 18; TEMP 98.8; O2SAT 97
[2025-04-04 03:16] LABS: GLUCOMETER DEV NAME(LOC) 6N.2C; GLUCOSE,POINT OF CARE 172 MG/DL (70-110)
[2025-04-04 04:08] VITALS: BP 138/75; PULSE 71; RESP 18; TEMP 98.1; O2SAT 96
[2025-04-04 06:19] LABS: PLATELET COUNT (AUTO) 64 K/uL (150-450); RED BLOOD CELL COUNT(AUTO) 3.76 MIL/uL (4.50-5.90); RED CELL DISTRIBUTION WIDTH 16.4 % (11.5-14.5); WHITE BLOOD COUNT (AUTO) 2.3 K/uL (4.5-11.0)
[2025-04-04 06:47] LABS: APPEARANCE,URINE CLEAR (CLEAR); GLUCOSE, URINE (UA) NEGATIVE (NEGATIVE); LEUKOCYTE ESTERASE ,URINE NEGATIVE (NEGATIVE); NITRATE,URINE POSITIVE (NEGATIVE); OCCULT BLOOD,URINE NEGATIVE (NEGATIVE); SPECIFIC GRAVITIY, URINE 1.018 (1.003-1.030)
[2025-04-04 06:56] LABS: GLUCOMETER DEV NAME(LOC) 6N.1C; GLUCOSE,POINT OF CARE 147 MG/DL (70-110)
[2025-04-04 07:00] LABS: CALCIUM, TOTAL 7.8 mg/dL (8.8-10.5); CREATININE 0.88 mg/dL (0.60-1.30); GLOMERULAR FILTR. RATE CALC > 60 mL/min (>60); GLUCOSE,RANDOM 158 mg/dL (70-110); SODIUM SERUM 141 mmol/L (136-145); UREA NITROGEN, BLOOD 21 mg/dL (7-18)
[2025-04-04 08:00] LABS: SQUAMOUS EPITHELIAL CELL,UR Rare /LPF (None Seen)
[2025-04-04 08:54] VITALS: BP 123/74; PULSE 69; RESP 19; TEMP 97.7; O2SAT 99
[2025-04-04 12:35] LABS: GLUCOMETER DEV NAME(LOC) 6S.2; GLUCOSE,POINT OF CARE 124 MG/DL (70-110)
[2025-04-04 18:15] LABS: GLUCOMETER DEV NAME(LOC) 6N.1C; GLUCOSE,POINT OF CARE 142 MG/DL (70-110)
[2025-04-04 20:20] VITALS: BP 125/78; PULSE 72; RESP 18; TEMP 98.1; O2SAT 98
[2025-04-04] MEDS ORDERED: POTASSIUM CHL 10 MEQ/WATER 50 ML IV PRN (22:15)
[2025-04-04] MEDS: POTASSIUM CHLORIDE 20 MEQ ER TABLET PO PRN (22:20)
[2025-04-04] MEDS: ZOLPIDEM TARTRATE 5 MG TABLET PO PRN (23:04)
[2025-04-04 23:50] LABS: GLUCOMETER DEV NAME(LOC) 4E.2; GLUCOSE,POINT OF CARE 137 MG/DL (70-110)
[2025-04-05 04:39] VITALS: BP 134/69; PULSE 73; RESP 18; TEMP 98; O2SAT 95
[2025-04-05 07:21] LABS: GLUCOMETER DEV NAME(LOC) 6S.2; GLUCOSE,POINT OF CARE 117 MG/DL (70-110)
[2025-04-05 08:00] VITALS: BP 124/61; PULSE 70; RESP 19; TEMP 98.4; O2SAT 95
[2025-04-05] MEDS: MIDAZOLAM HCL 2 MG/2 ML VIAL IVP ONE (10:12)
[2025-04-05] MEDS: FentaNYL CITRATE PF 100 MCG/2 ML VIAL IVP ONE (10:12)
[2025-04-05 15:42] VITALS: BP 127/72; PULSE 75; RESP 18; TEMP 98.1; O2SAT 95
[2025-04-05 17:46] LABS: GLUCOMETER DEV NAME(LOC) 6N.1C; GLUCOSE,POINT OF CARE 136 MG/DL (70-110)
[2025-04-05 19:48] VITALS: BP 116/90; PULSE 74; RESP 19; TEMP 98.2; O2SAT 95
[2025-04-05 22:40] LABS: GLUCOMETER DEV NAME(LOC) 4E.2; GLUCOSE,POINT OF CARE 166 MG/DL (70-110)
[2025-04-06 04:43] VITALS: BP 120/64; PULSE 74; RESP 18; TEMP 98.1; O2SAT 96
[2025-04-06 05:30] LABS: GLUCOMETER DEV NAME(LOC) 6S.2; GLUCOSE,POINT OF CARE 213 MG/DL (70-110)
[2025-04-06 07:40] LABS: GLUCOMETER DEV NAME(LOC) 4E.2; GLUCOSE,POINT OF CARE 125 MG/DL (70-110)
[2025-04-06 08:41] VITALS: BP 104/70; PULSE 73; RESP 20; TEMP 97.9; O2SAT 93
[2025-04-06 12:46] LABS: GLUCOMETER DEV NAME(LOC) 6S.2; GLUCOSE,POINT OF CARE 131 MG/DL (70-110)
[2025-04-06 18:46] VITALS: BP 139/74; PULSE 74; RESP 19; TEMP 97.7; O2SAT 94
[2025-04-06 20:00] VITALS: BP 110/60; PULSE 73; RESP 20; TEMP 97.9; O2SAT 95
[2025-04-06] MEDS ORDERED: MORPHINE SULFATE 2 MG/ML SYRINGE IVP ONE (20:15)
[2025-04-06 22:11] LABS: GLUCOMETER DEV NAME(LOC) 6N.1C; GLUCOSE,POINT OF CARE 146 MG/DL (70-110)
[2025-04-07 06:15] LABS: GLUCOMETER DEV NAME(LOC) 4E.2; GLUCOSE,POINT OF CARE 164 MG/DL (70-110)
== END 2025-04-07 03:15 | DRG 725 ==
LOC: EMS 23:50 → EDH 03-29 05:41 → 6N 03-29 10:45
PROVIDERS: ADMIT Hospitalist; ATTEND Hospitalist
PROC: 0BBJ3ZX Excision of Left Lower Lung Lobe, Percutaneous Approach, Diagnostic (ICD-10-PCS; principal; 2025-04-05)
DX: N40.1 Benign prostatic hyperplasia with lower urinary tract symptoms (principal); J18.9 Pneumonia, unspecified organism; J44.0 Chronic obstructive pulmonary disease with (acute) lower respiratory infection; R33.8 Other retention of urine; E11.9 Type 2 diabetes mellitus without complications; I95.9 Hypotension, unspecified; I50.9 Heart failure, unspecified; K74.60 Unspecified cirrhosis of liver; R91.8 Other nonspecific abnormal finding of lung field; I11.0 Hypertensive heart disease with heart failure; I25.10 Atherosclerotic heart disease of native coronary artery without angina pectoris; D69.6 Thrombocytopenia, unspecified; Z95.5 Presence of coronary angioplasty implant and graft; Z87.891 Personal history of nicotine dependence; Z88.5 Allergy status to narcotic agent; Z86.73 Personal history of transient ischemic attack (TIA), and cerebral infarction without residual deficits
CPT/HCPCS: 51702; 71045; 71260; 75989; 80048; 81001; 81003; 82962; 83516; 84132; 85025; 85610; 85730; 86225; 87081; 87305; 87385; 96374; 99285; J0696; J1644; J3010; J3490; J7040; J7050; J7060; 36415-L1; 36415-TC